=== PATIENT | female | born 1960 | race Two or more races ===

== ENCOUNTER 2020-11-04 05:17 | Day surgery (SDC) | payer OTHER ==
[~2020-11-04 05:17] MED LIST: AMBIEN10 MG PO; ATORVASTATIN CA20 MG PO; FORTAMET1000 MG PO; LOSARTAN-HCTZ1 EAC1 PO; OMEPRAZ PO; SINGULAIR10 MG PO; TRAMADOL; VENTOL
== END 2020-11-04 13:25 | disposition home or self-care (01) ==
LOC: CIR.AMB 05:17
PROVIDERS: ATTEND Orthopaedic Surgery Sports Medicine
DX: M75.121 Complete rotator cuff tear or rupture of right shoulder, not specified as traumatic (principal); Z20.828 Contact with and (suspected) exposure to other viral communicable diseases

== ENCOUNTER 2022-04-24 13:46 | Emergency (ER) | payer OTHER ==
[~2022-04-24] VITALS: Ht 160 cm; Wt 75.7 kg
== END 2022-04-24 22:21 | disposition left against medical advice (07) ==
LOC: ER 13:46
DX: M54.50 Low back pain, unspecified (principal); E11.9 Type 2 diabetes mellitus without complications; Z79.84 Long term (current) use of oral hypoglycemic drugs; I10 Essential (primary) hypertension